=== PATIENT | male | born 1965 | race Caucasian/White ===

== ENCOUNTER 2020-07-08 16:13 | Observation (INO) ==
[2020-07-08] MEDS ORDERED: 0.9 % Sodium Chloride 1,000 ML IVC ONE (16:31)
[2020-07-08 16:38] LABS: Basophils # 0.1 K/mcL (0.0-0.2); Basophils % 0.5 %; Eosinophils # 0.2 K/mcL (0.0-0.6); Eosinophils % 1.1 %; Hematocrit 37.9 % (37.5-50.1); Hemoglobin 12.9 g/dL (12.9-16.9); Immature Granulocytes % 1.5 % (0-4); Lymphocytes # 1.6 K/mcL (0.6-4.6); Lymphocytes % 9.6 %; Mean Corpuscular Hemoglobin 30.7 pg (28.0-33.3); Mean Corpuscular Volume 90.2 fL (83.0-100.0); Mean Platelet Volume 9.3 fL (9.4-12.4); Monocytes # 1.2 K/mcL (0.0-1.3); Monocytes % 6.9 %; Neutrophils # 13.7 K/mcL (1.6-8.9); Platelet Count 452 K/mcL (140-400); Red Cell Distribution Width 12.5 % (11.5-14.5); Segmented Neutrophils % 80.4 %
[2020-07-08 16:43] LABS: INR 1.3; Prothrombin Time 14.7 Seconds (9.4-12.1)
[2020-07-08] MEDS ORDERED: cefTRIAXone 1,000 MG in Water for inj. (sterile) 10 ML IVP ONE (16:56)
[2020-07-08] MEDS ORDERED: Azithromycin 500 MG in 0.9 % Sodium Chloride 250 ML IVPB ONE (16:56)
[2020-07-08 17:05] LABS: BUN/Creatinine Ratio 18 (6-26); Blood Urea Nitrogen 16 mg/dL (6-20); Calcium 9.8 mg/dL (8.6-10.3); Carbon Dioxide 27 mEq/L (23-29); Chloride 96 mEq/L (98-107); Glucose 138 mg/dL (70-105); Osmolality,Calculated 287 (280-300); Potassium 2.6 mEq/L (3.5-5.1); Sodium 137 mEq/L (136-145); eGFR For African Americans > 60 (> 60); eGFR For Non-African Americans > 60 (> 60)
[2020-07-08] MEDS ORDERED: Dexamethasone 4 MG/ML VIAL IVP ONE (18:15)
[2020-07-08] MEDS ORDERED: Ondansetron 4 MG/2 ML VIAL IVP PRN (18:40)
[2020-07-08] MEDS ORDERED: Naloxone 0.4 MG/ML INJ IVP PRN (18:40)
[2020-07-08] MEDS ORDERED: Ipratropium/Albuterol Neb 3 ML IH PRN (18:44)
[2020-07-08] MEDS ORDERED: Azithromycin 500 MG in 0.9 % Sodium Chloride 250 ML IVPB SCH (19:00)
[2020-07-08] MEDS: *HR* Heparin 5,000 UNIT/ML VIAL SQ SCH (21:40)
[2020-07-08] MEDS: *HR* HYDROcodone/Acet 10/325 mg TABLET PO PRN (21:40)
[2020-07-08] MEDS: Carisoprodol 350 MG TABLET PO PRN (22:22)
[2020-07-08] MEDS: Budesonide/Formoterol 160/4.5 1 PUFF INH IH SCH (22:24)
[2020-07-09 01:30] LABS: Basophils % 0.2 %; Hemoglobin 12.1 g/dL (12.9-16.9); Immature Granulocytes % 1.9 % (0-4); Lymphocytes # 1.1 K/mcL (0.6-4.6); Lymphocytes % 8.8 %; Mean Corpuscular HGB Conc 33.6 g/dL (31.6-35.5); Mean Corpuscular Hemoglobin 31.3 pg (28.0-33.3); Mean Corpuscular Volume 93.3 fL (83.0-100.0); Mean Platelet Volume 9.4 fL (9.4-12.4); Monocytes # 0.7 K/mcL (0.0-1.3); Monocytes % 5.6 %; Neutrophils # 10.1 K/mcL (1.6-8.9); Platelet Count 428 K/mcL (140-400); Red Blood Count 3.86 M/mcL (4.19-5.50); Red Cell Distribution Width 12.9 % (11.5-14.5); Segmented Neutrophils % 83.5 %; White Blood Count 12.1 K/mcL (4.3-11.1)
[2020-07-09 01:50] LABS: BUN/Creatinine Ratio 22 (6-26); Blood Urea Nitrogen 19 mg/dL (6-20); Calcium 8.7 mg/dL (8.6-10.3); Carbon Dioxide 26 mEq/L (23-29); Chloride 100 mEq/L (98-107); Glucose 169 mg/dL (70-105); Osmolality,Calculated 292 (280-300); Potassium 3.1 mEq/L (3.5-5.1); Sodium 138 mEq/L (136-145); eGFR For African Americans > 60 (> 60); eGFR For Non-African Americans > 60 (> 60)
[2020-07-09 01:54] LABS: Troponin I 0.05 ng/mL (< 0.04)
[2020-07-09] MEDS: *HR* HYDROcodone/Acet 10/325 mg TABLET PO PRN ×2 (04:32→10:22)
[2020-07-09] MEDS: Carisoprodol 350 MG TABLET PO PRN (06:13)
[2020-07-09] MEDS: *HR* Heparin 5,000 UNIT/ML VIAL SQ SCH (06:13)
[2020-07-09] MEDS: Budesonide/Formoterol 160/4.5 1 PUFF INH IH SCH (07:40)
[2020-07-09] MEDS ORDERED: levoFLOXacin 750 MG/150 ML 750 MG/150 ML BAG IVPB SCH (09:00)
[2020-07-09] MEDS ORDERED: predniSONE 20 MG TABLET PO SCH (09:00)
[2020-07-09] MEDS ORDERED: cefTRIAXone 1,000 MG in 0.9 % Sodium Chloride Mini Bag 100 ML IVPB SCH (09:00)
[2020-07-09 11:05] VITALS: BP 127/78
== END 2020-07-09 13:34 | disposition home or self-care (01) ==
LOC: EMEROOARM 16:13 → 2ANU 16:13 → SUATTDRO 18:06 → 2ANU 19:34
PROVIDERS: ADMIT Internal Medicine; ATTEND Internal Medicine